=== PATIENT | female | born 1970 | race Caucasian/White ===

== ENCOUNTER 2021-03-11 06:39 | Emergency (ER) | payer OTHER ==
[~2021-03-11 06:39] MED LIST: ONDANSETRON ODT4 MG PO
[2021-03-11 07:09] LABS: BASOPHIL 0.4 % (0-2); EOSINOPHIL 2.7 % (0-5); HCT 41.6 % (37.0-47.0); HGB 13.8 g/dl (12.5-16.0); LYMPHOCYTE 27.4 % (15-48); MCH 29.7 pg (25.0-31.0); MCHC 33.2 g/dL (32.0-36.0); MCV 89.7 fL (78.0-100.0); MONOCYTE 10.6 % (0-12); MPV 10.5 fL (6.0-9.5); NEUTROPHIL 58.8 % (41-80); NRBC 0; PLT 208 K/uL (150-400); RBC 4.64 M/uL (4.20-5.40); RDW 12.3 % (11.5-14.0); WBC 7.1 K/uL (4.0-10.5)
[2021-03-11 07:13] LABS: INR 1.11 (0.9-1.2); PROTHROMBIN TIME 13.7 SECONDS (11.8-13.4)
[2021-03-11 07:20] LABS: ALBUMIN 3.9 g/dL (3.4-5.0); BILIRUBIN - TOTAL 0.5 mg/dL (0.2-1.0); BUN/CREAT RATIO (CALC) 11.4 RATIO; CREATININE 0.79 mg/dL (0.51-0.95); GLOBULIN (CALCULATION) 3.7 g/dL; POTASSIUM 3.8 mmol/L (3.5-5.1); TOTAL PROTEIN 7.6 g/dL (6.4-8.2)
[2021-03-11] MEDS ORDERED: NAPROXEN500 MG PO (12:41)
[2021-03-11] MEDS ORDERED: REGLAN10 MG PO (12:41)
[2021-03-11] MEDS ORDERED: BENADRYL25 MG PO (12:41)
[2021-03-11] MEDS ORDERED: ASPIRIN EC81 M1 PO (12:42)
== END 2021-03-11 13:01 | disposition home or self-care (01) ==
LOC: FER 06:39
PROVIDERS: Emergency Medicine
DX: G43.109 Migraine with aura, not intractable, without status migrainosus (principal); E11.65 Type 2 diabetes mellitus with hyperglycemia; Z86.73 Personal history of transient ischemic attack (TIA), and cerebral infarction without residual deficits; Z82.49 Family history of ischemic heart disease and other diseases of the circulatory system; Z79.899 Other long term (current) drug therapy
CPT/HCPCS: 36415; 70450; 70544; 70548; 70551; 71045; 80053; 84484; 85025; 85610; A9579; J0780; J1170; J1885; J2997; J3475; J7030

== ENCOUNTER 2021-08-17 13:15 | Emergency (ER) | payer OTHER ==
[~2021-08-17 13:15] MED LIST changes: +ASPIRIN EC81 M1 PO; +BENADRYL25 MG PO; +NAPROXEN500 MG PO; +REGLAN10 MG PO
[2021-08-17 15:46] LABS: BASOPHIL 0.5 % (0-2); EOSINOPHIL 1.4 % (0-5); HCT 42.9 % (37.0-47.0); LYMPHOCYTE 35.8 % (15-48); MCH 28.9 pg (25.0-31.0); MCHC 32.6 g/dL (32.0-36.0); MCV 88.6 fL (78.0-100.0); MONOCYTE 9.5 % (0-12); MPV 10.5 fL (6.0-9.5); NEUTROPHIL 52.5 % (41-80); NRBC 0; PLT 195 K/uL (150-400); RBC 4.84 M/uL (4.20-5.40); RDW 12.7 % (11.5-14.0); WBC 6.5 K/uL (4.0-10.5)
[2021-08-17 16:07] LABS: ALBUMIN 3.9 g/dL (3.4-5.0); ALKALINE PHOSHATASE 75 U/L (46-116); ALT 41 U/L (14-59); AST 26 U/L (15-37); BILIRUBIN - TOTAL 0.3 mg/dL (0.2-1.0); BUN 8 mg/dL (7-18); BUN/CREAT RATIO (CALC) 10.8 RATIO; CHLORIDE 104 mmol/L (98-107); CO2 (BICARBONATE) 30 mmol/L (21-32); CREATININE 0.74 mg/dL (0.51-0.95); GLOBULIN (CALCULATION) 2.9 g/dL; GLUCOSE 105 mg/dL (74-106); POTASSIUM 3.3 mmol/L (3.5-5.1); TOTAL PROTEIN 6.8 g/dL (6.4-8.2)
== END 2021-08-17 17:15 | disposition left against medical advice (07) ==
LOC: FER 13:15
PROVIDERS: Emergency Medicine
DX: R07.2 Precordial pain (principal); I10 Essential (primary) hypertension; E11.9 Type 2 diabetes mellitus without complications; Z53.8 Procedure and treatment not carried out for other reasons
CPT/HCPCS: 36415; 71045; 80053; 84484; 85025; 93005; J7030